=== PATIENT | male | born 1970 | race Caucasian/White ===

== ENCOUNTER 2019-08-06 00:58 | Emergency (ER) | payer BC ==
[2019-08-06 08:49] VITALS: BP 123/83; TEMP 97.9; O2SAT 100
== END 2019-08-06 02:27 | disposition home or self-care (01) ==
LOC: ER 00:58
DX: R19.7 Diarrhea, unspecified (principal); Z88.3 Allergy status to other anti-infective agents
CPT/HCPCS: 85025; 80048; 36415; 80076; 83690; 96360; 99284; J7030